=== PATIENT | female | born 1960 | race Caucasian/White ===

== ENCOUNTER 2019-01-03 06:28 | Inpatient (IN) ==
[2019-01-03] MEDS ORDERED: Aspirin 81 MG TAB.CHEW PO ONE (06:33)
[2019-01-03] MEDS ORDERED: Ondansetron 4 MG/2 ML VIAL IVP ONE (07:08)
[2019-01-03] MEDS ORDERED: *HR* FentaNYL (PF) 100 MCG/2 ML VIAL IVP ONE (07:08)
[2019-01-03 07:11] LABS: Basophils # 0.1 K/mcL (0.0-0.2); Basophils % 0.5 %; Eosinophils # 0.1 K/mcL (0.0-0.6); Eosinophils % 0.6 %; Hematocrit 45.4 % (35.3-44.9); Immature Granulocytes % 0.5 % (0-4); Lymphocytes # 2.7 K/mcL (0.6-4.6); Lymphocytes % 21.3 %; Mean Corpuscular Hemoglobin 29.5 pg (28.0-33.3); Mean Corpuscular Volume 89.4 fL (83.0-100.0); Mean Platelet Volume 10.2 fL (9.4-12.4); Monocytes # 0.7 K/mcL (0.0-1.3); Monocytes % 5.6 %; Neutrophils # 9.1 K/mcL (1.6-8.9); Platelet Count 171 K/mcL (140-400); Red Blood Count 5.08 M/mcL (3.82-4.97); Red Cell Distribution Width 13.7 % (11.5-14.5); Segmented Neutrophils % 71.5 %; White Blood Count 12.8 K/mcL (4.3-11.1)
[2019-01-03 07:21] LABS: Activated Partial Thrombo Time 34.9 Seconds (26.0-36.0); Prothrombin Time 11.2 Seconds (9.4-12.1)
--- NOTE | 2019-01-03 07:25 | Emergency Department Note ---
Disposition Clinical Impression: ST elevation myocardial infarction (STEMI) Qualifiers: Involved coronary artery: unspecified coronary artery Qualified Code(s): I21.3 - ST elevation (STEMI) myocardial infarction of unspecified site Disposition: Admitted As Inpatient Condition: Critical Referrals: Coleen Fitzgerald MD [Primary Care Provider] - Forms: ED Satisfaction Letter Time of Disposition: 09:01 Chest Pain HPI - General Chief Complaint: ED Chest Pain Stated Complaint: CP Time Seen by Provider: 01/03/19 06:33 Source: patient, family Mode of arrival: ambulatory Limitations: no limitations Vital Signs Reviewed: Yes Nursing Notes Reviewed: Yes - History of Present Illness HPI Narrative: Nontoxic-appearing 58-year-old female arrives ambulatory to the ED with complaining of chest pain. Patient states that pain is on her right sided lower chest radiating to right arm and back. Pain started last night and worsened around 3 AM. Associated symptoms include nausea and vomiting she states she has vomited multiple times. She describes some right upper quadrant tenderness and bilious with some food content, [employer] pizza, that she ate earlier in the evening. Patient describes pain as sharp,constant pain with intermittent waves of increased pain. Patient states current level of pain is 8-9 out of 10. Patient denies worsening factors. And patient denies improving factors, Aleve was taken around 3:30 AM with no improvement. Patient denies shortness of b reath, pain with inspiration, cough or palpitations. Patient states that she has noticed a gradual intolerance to fried greasy foods when inquired. She denies any hemoptysis. Pt complaint: chest pain Onset (ago): hour(s) Time: 03:00 Duration: constant, intermittent, gradually worsening Onset: during rest, during exertion Pain Location: right chest Severity: severe Severity scale (1-10): 8 Quality: sharp, other (Waves of increasing pain) Pain Radiation: back, other (Right arm) Improves with: nothing Associated symptoms: Reports: nausea, vomiting, diaphoresis (Feels "sweaty and hot"). Denies: dyspnea, syncope, palpitations, fever, cough Treatments prior to arrival chest pain: other (Aleve at 3:30.) - Related Data Home Medications Medication Instructions Recorded Confirmed No Known Home Drugs 01/03/19 01/03/19 Allergies Allergy/AdvReac Type Severity Reaction Status Date / Time codeine Allergy See Verified 01/03/19 06:43 Comments levofloxacin [From Levaquin] AdvReac Muscle Pain Verified 01/03/19 06:42 All systems ED: reviewed and negative except as stated. Review of Systems: As Per HPI Constitutional: Denies: fever, chills, weakness, weight change Eyes: Denies: eye pain, eye discharge, vision change ENT ED: Denies: ear pain, throat pain, dental pain, hearing loss, epistaxis, congestion, dysphagia Cardiovascular: Reports: as per HPI, chest pain (Right-sided lower chest pain radiating to right arm and right sided back.). Denies: palpitations, dyspnea on exertion, edema, syncope Respiratory: Denies: cough, dyspnea, wheezes, hemoptysis, stridor Gastrointestinal: Reports: as per HPI, abdominal pain (Right upper quadrant), nausea, vomiting. Denies: diarrhea, constipation, hematemesis, melena, hematochezia Genitourinary: Reports: frequency. Denies: dysuria, hematuria, discharge Musculoskeletal: Reports: back pain (Associated with chest pain). Denies: neck pain, arthralgia, myalgia Integumentary: Denies: rash, abrasion, lesions Neurological: Denies: headache, weakness, numbness, paresthesias, confusion, abnormal gait, vertigo Psychiatric: Denies: anxiety, depression, suicidal thoughts, homicidal thoughts, auditory hallucinations, visual hallucinations Endocrine: Denies: fatigue Hematological/Lymphatic: Denies: easy bleeding, easy bruising Allergic/Immunologic: Denies: facial swelling, urticaria Chest Pain PMH - Past Medical History Medical history: Reports: diabetes, hypertension Psychiatric history: Reports: no psych history - Social History Smoking Status: Former smoker Alcohol use: Reports: rarely Drug use: Reports: none Physical Exam - General Limitations: no limitations General appearance: alert, anxious (Appears uncomfortable.) - Head Head exam: atraumatic, normocephalic, normal inspection - Eye Eye exam: Present: normal appearance, PERRL, EOMI. Absent: conjunctival injection - ENT ENT exam: mucous membranes moist - Neck Neck exam: Present: normal inspection, full ROM, trachea midline - Chest Chest inspection: Present: normal inspection, symmetric chest wall rise - Respiratory Respiratory exam: Present: normal lung sounds bilaterally. Absent: respiratory distress, wheezes, stridor, accessory muscle use, prolonged expiratory phase - Cardiovascular Cardiovascular exam: Present: regular rate, normal rhythm, normal heart sounds - Abdominal Exam Abdominal exam: Present: tenderness, normal bowel sounds, Coley's sign. Absent: distention, guarding, rebound, rigidity, tenderness at McBurney's Point, mass, pulsatile mass Abdominal tenderness: Present: RUQ, moderate - Extremities Exam Extremities exam: Present: normal inspection, full ROM, tenderness (Radiation of pain down right arm.), normal capillary refill. Absent: pedal edema - Back Exam Back exam: Present: normal inspection, full ROM. Absent: CVA tenderness (R), CVA tenderness (L), vertebral tenderness - Neurological Exam Neurological exam: Present: alert, oriented X3, CN II-XII intact. Absent: motor sensory deficit - Psychiatric Psychiatric exam: Present: normal affect, normal mood, anxious (Related to pain) - Skin Skin exam: Present: warm, dry, intact, normal color. Absent: rash Course Course Narrative: 0826: Initial EKG and prior EKG reviewed by Dr. Courtney, cask maker. He states that the EKG is not diagnostic currently but is concerning if symptoms are ongoing. He states that if the patient is significantly hypertensive, that the EKG changes of slight elevation in lead 1, aVL, and ST segment depression in lead 3 could be due to the patient's hypertensive state. The patient was hypertensive at 196/124 on arrival. Systolic blood pressure has improved to 165 systolic after the administration of IV fentanyl. He does recommend repeating a troponin, starting the patient on a heparin drip. She will be given aspirin and nitroglycerin here in the emergency department. Repeat EKG will be performed as soon as the patient returns from ultrasound/CT. 0835: EKG repeated and shows an interval increase in ST segment elevation in lead aVL as well as worsening ST segment depression, as such ST elevation myocardial infarction in evolution. The patient states no improvement in pain as of yet. 0840: I discussed these EKG changes with Dr. Courtney. He agrees with progressing to a STEMI alert. He requested patient be given 180 mg of Brilinta by mouth. The patient and her spouse have been updated on the change of course and future plan. Vital Signs Temperature 97.9 F 01/03/19 06:33 Pulse Rate 90 01/03/19 06:33 Respiratory Rate 23 01/03/19 06:33 Blood Pressure 196/124 01/03/19 06:33 O2 Sat by Pulse Oximetry 96 01/03/19 06:33 Temperature 97.9 F 01/03/19 06:33 Pulse Rate 86 01/03/19 08:46 Respiratory Rate 18 01/03/19 08:46 Blood Pressure 160/91 01/03/19 08:46 O2 Sat by Pulse Oximetry 98 01/03/19 08:46 Oxygen Delivery Oxygen Delivery Nasal Cannula Chest Pain - Differential Diagnosis Likely: unstable angina pectoris, atypical chest pain, st elevation myocardial infraction, chest pain, biliary colic - Medical Records Medical records reviewed: Yes I reviewed the patient's medical records. - Lab Data Lab results reviewed: Yes I reviewed the patient's lab results. Lab results narrative: Lab Results 01/03/19 01/03/19 01/03/19 Range/Units 07:01 07:01 07:01 WBC 12.8 H (4.3-11.1) K/mcL RBC 5.08 H (3.82-4.97) M/mcL Hgb 15.0 (11.5-15.4) g/dL Hct 45.4 H (35.3-44.9) % MCV 89.4 (83.0-100.0) fL MCH 29.5 (28.0-33.3) pg MCHC 33.0 (31.6-35.5) g/dL RDW 13.7 (11.5-14.5) % Plt Count 171 (140-400) K/mcL MPV 10.2 (9.4-12.4) fL Immature Gran % 0.5 (0-4) % Seg Neutrophils % 71.5 % Lymphocytes % 21.3 % Monocytes % 5.6 % Eosinophils % 0.6 % Basophils % 0.5 % Neutrophils # 9.1 H (1.6-8.9) K/mcL Lymphocytes # 2.7 (0.6-4.6) K/mcL Monocytes # 0.7 (0.0-1.3) K/mcL Eosinophils # 0.1 (0.0-0.6) K/mcL Basophils # 0.1 (0.0-0.2) K/mcL PT 11.2 (9.4-12.1) Seconds INR 1.0 APTT 34.9 (26.0-36.0) Seconds Sodium 137 (136-145) mEq/L Potassium 4.2 (3.5-5.1) mEq/L Chloride 103 (98-107) mEq/L Carbon Dioxide 22 L (23-29) mEq/L BUN 19 (6-20) mg/dL Creatinine 0.66 (0.60-1.20) mg/dL Est GFR ( Amer) > 60 (> 60) Est GFR (Non-Af Amer) > 60 (> 60) BUN/Creatinine Ratio 29 H (6-26) Glucose 169 H (70-105) mg/dL Calculated Osmolality 290 (280-300) Calcium 9.3 (8.6-10.3) mg/dL Total Bilirubin 0.5 (0.3-1.0) mg/dL Direct Bilirubin 0.1 (0.0-0.2) mg/dL Indirect Bilirubin 0.4 (0.0-1.2) mg/dL AST 19 (13-39) Units/L ALT 20 (7-52) Units/L Alkaline Phosphatase 69 (34-104) Units/L Troponin I 0.37 H* (< 0.04) ng/mL B-Natriuretic Peptide (Less than 100) pg/mL Serum Total Protein 6.9 (6.4-8.9) g/dL Albumin 4.3 (3.5-5.7) g/dL Globulin 2.6 (2.4-3.5) g/dL Albumin/Globulin Ratio 1.7 (1.1-2.2) Lipase 39 (11-82) Units/L 01/03/19 Range/Units 07:01 WBC (4.3-11.1) K/mcL RBC (3.82-4.97) M/mcL Hgb (11.5-15.4) g/dL Hct (35.3-44.9) % MCV (83.0-100.0) fL MCH (28.0-33.3) pg MCHC (31.6-35.5) g/dL RDW (11.5-14.5) % Plt Count (140-400) K/mcL MPV (9.4-12.4) fL Immature Gran % (0-4) % Seg Neutrophils % % Lymphocytes % % Monocytes % % Eosinophils % % Basophils % % Neutrophils # (1.6-8.9) K/mcL Lymphocytes # (0.6-4.6) K/mcL Monocytes # (0.0-1.3) K/mcL Eosinophils # (0.0-0.6) K/mcL Basophils # (0.0-0.2) K/mcL PT (9.4-12.1) Seconds INR APTT (26.0-36.0) Seconds Sodium (136-145) mEq/L Potassium (3.5-5.1) mEq/L Chloride (98-107) mEq/L Carbon Dioxide (23-29) mEq/L BUN (6-20) mg/dL Creatinine (0.60-1.20) mg/dL Est GFR ( Amer) (> 60) Est GFR (Non-Af Amer) (> 60) BUN/Creatinine Ratio (6-26) Glucose (70-105) mg/dL Calculated Osmolality (280-300) Calcium (8.6-10.3) mg/dL Total Bilirubin (0.3-1.0) mg/dL Direct Bilirubin (0.0-0.2) mg/dL Indirect Bilirubin (0.0-1.2) mg/dL AST (13-39) Units/L ALT (7-52) Units/L Alkaline Phosphatase (34-104) Units/L Troponin I (< 0.04) ng/mL B-Natriuretic Peptide 47 (Less than 100) pg/mL Serum Total Protein (6.4-8.9) g/dL Albumin (3.5-5.7) g/dL Globulin (2.4-3.5) g/dL Albumin/Globulin Ratio (1.1-2.2) Lipase (11-82) Units/L Result diagrams: 01/03/19 07:01 01/03/19 07:01 Lab Results 01/03/19 01/03/19 01/03/19 Range/Units 07:01 07:01 07:01 WBC 12.8 H (4.3-11.1) K/mcL RBC 5.08 H (3.82-4.97) M/mcL Hgb 15.0 (11.5-15.4) g/dL Hct 45.4 H (35.3-44.9) % MCV 89.4 (83.0-100.0) fL MCH 29.5 (28.0-33.3) pg MCHC 33.0 (31.6-35.5) g/dL RDW 13.7 (11.5-14.5) % Plt Count 171 (140-400) K/mcL MPV 10.2 (9.4-12.4) fL Immature Gran % 0.5 (0-4) % Seg Neutrophils % 71.5 % Lymphocytes % 21.3 % Monocytes % 5.6 % Eosinophils % 0.6 % Basophils % 0.5 % Neutrophils # 9.1 H (1.6-8.9) K/mcL Lymphocytes # 2.7 (0.6-4.6) K/mcL Monocytes # 0.7 (0.0-1.3) K/mcL Eosinophils # 0.1 (0.0-0.6) K/mcL Basophils # 0.1 (0.0-0.2) K/mcL PT 11.2 (9.4-12.1) Seconds INR 1.0 APTT 34.9 (26.0-36.0) Seconds Sodium 137 (136-145) mEq/L Potassium 4.2 (3.5-5.1) mEq/L Chloride 103 (98-107) mEq/L Carbon Dioxide 22 L (23-29) mEq/L BUN 19 (6-20) mg/dL Creatinine 0.66 (0.60-1.20) mg/dL Est GFR ( Amer) > 60 (> 60) Est GFR (Non-Af Amer) > 60 (> 60) BUN/Creatinine Ratio 29 H (6-26) Glucose 169 H (70-105) mg/dL Calculated Osmolality 290 (280-300) Calcium 9.3 (8.6-10.3) mg/dL Total Bilirubin 0.5 (0.3-1.0) mg/dL Direct Bilirubin 0.1 (0.0-0.2) mg/dL Indirect Bilirubin 0.4 (0.0-1.2) mg/dL AST 19 (13-39) Units/L ALT 20 (7-52) Units/L Alkaline Phosphatase 69 (34-104) Units/L Troponin I 0.37 H* (< 0.04) ng/mL B-Natriuretic Peptide (Less than 100) pg/mL Serum Total Protein 6.9 (6.4-8.9) g/dL Albumin 4.3 (3.5-5.7) g/dL Globulin 2.6 (2.4-3.5) g/dL Albumin/Globulin Ratio 1.7 (1.1-2.2) Lipase 39 (11-82) Units/L / Range/Units 07:01 WBC (4.3-11.1) K/mcL RBC (3.82-4.97) M/mcL Hgb (11.5-15.4) g/dL Hct (35.3-44.9) % MCV (83.0-100.0) fL MCH (28.0-33.3) pg MCHC (31.6-35.5) g/dL RDW (11.5-14.5) % Plt Count (140-400) K/mcL MPV (9.4-12.4) fL Immature Gran % (0-4) % Seg Neutrophils % % Lymphocytes % % Monocytes % % Eosinophils % % Basophils % % Neutrophils # (1.6-8.9) K/mcL Lymphocytes # (0.6-4.6) K/mcL Monocytes # (0.0-1.3) K/mcL Eosinophils # (0.0-0.6) K/mcL Basophils # (0.0-0.2) K/mcL PT (9.4-12.1) Seconds INR APTT (26.0-36.0) Seconds Sodium (136-145) mEq/L Potassium (3.5-5.1) mEq/L Chloride (98-107) mEq/L Carbon Dioxide (23-29) mEq/L BUN (6-20) mg/dL Creatinine (0.60-1.20) mg/dL Est GFR ( Amer) (> 60) Est GFR (Non-Af Amer) (> 60) BUN/Creatinine Ratio (6-26) Glucose (70-105) mg/dL Calculated Osmolality (280-300) Calcium (8.6-10.3) mg/dL Total Bilirubin (0.3-1.0) mg/dL Direct Bilirubin (0.0-0.2) mg/dL Indirect Bilirubin (0.0-1.2) mg/dL AST (13-39) Units/L ALT (7-52) Units/L Alkaline Phosphatase (34-104) Units/L Troponin I (< 0.04) ng/mL B-Natriuretic Peptide 47 (Less than 100) pg/mL Serum Total Protein (6.4-8.9) g/dL Albumin (3.5-5.7) g/dL Globulin (2.4-3.5) g/dL Albumin/Globulin Ratio (1.1-2.2) Lipase (11-82) Units/L - Radiology Data Radiology results reviewed: Yes I reviewed the patient's radiology results. Chest X-Ray 01/03/19 06:33 IMPRESSION: No acute cardiopulmonary disease or significant interval change from prior study 04/29/2013 D/ / Vu Ibarra / Vu Ibarra Interpreting Provider: Vu Ibarra Gallbladder Ultrasound 01/03/19 07:15 IMPRESSION: Moderate fatty infiltration of the liver. No acute abnormality. No evident gallbladder disease. RECOMMENDATIONS: If a strong clinical suspicion of gallbladder disease exists, a hepatobiliary scan with gallbladder stimulation would be recommended. D/ / Lam Fraser MD / Lam Fraser MD Interpreting Provider: Lam Fraser MD Chest CTA 01/03/19 07:42 IMPRESSION: No evidence of pulmonary embolism or acute pulmonary abnormality. Slight bibasilar atelectasis. Old granulomatous disease. D/ / Lam Fraser MD / Lam Fraser MD Interpreting Provider: Lam Fraser MD - EKG Data EKG attestation: Yes I reviewed and interpreted this EKG. EKG results narrative: EKG reviewed by scene shifter ED attending at 6:40 AM. EKG showed a sinus rhythm at a rate of 82 bpm. OK interval 122, QRS duration 82, QT/QTc interval 372/435. EKG interpreted at that time as no acute change. Patient's troponin returned elevated at 0.37 and the EKG was revisited with dayshift attending, Dr. Rollins. Upon closer inspection, there does appear to be some slight ST segment elevation in lead 1 as well as aVL with some ST segment depression in lead 3. Poor tracing on prior EKG dated from 06/17/[address] segment depression does appear to be new from that time. Attestation Statement - Attestation Attestation: I, Nestor Rollins DO have provided [id number] time during the care of this patient. Detailed review the presentation, symptoms, medical history were discussed and reviewed with the advanced practice provider Haroon Suresh PA-C/KYLE. Medical intervention labs and imaging studies were reviewed in detail. See full documentation of physical exam and course of care in the advanced practice provi katina's note. I agree with the determined course of care, medical intervention and disposition put forth by the advanced practice provider. See below documentation for changes or alterations in documentation.
[2019-01-03 07:40] LABS: Alanine Aminotransferase 20 Units/L (7-52); Albumin 4.3 g/dL (3.5-5.7); Albumin/Globulin Ratio 1.7 (1.1-2.2); Alkaline Phosphatase 69 Units/L (34-104); Aspartate Amino Transferase 19 Units/L (13-39); BUN/Creatinine Ratio 29 (6-26); Bilirubin,Direct 0.1 mg/dL (0.0-0.2); Bilirubin,Indirect 0.4 mg/dL (0.0-1.2); Bilirubin,Total 0.5 mg/dL (0.3-1.0); Blood Urea Nitrogen 19 mg/dL (6-20); Calcium 9.3 mg/dL (8.6-10.3); Carbon Dioxide 22 mEq/L (23-29); Chloride 103 mEq/L (98-107); Globulin 2.6 g/dL (2.4-3.5); Glucose 169 mg/dL (70-105); Lipase 39 Units/L (11-82); Osmolality,Calculated 290 (280-300); Potassium 4.2 mEq/L (3.5-5.1); Sodium 137 mEq/L (136-145); Total Protein 6.9 g/dL (6.4-8.9); Troponin I 0.37 ng/mL (< 0.04); eGFR For African Americans > 60 (> 60); eGFR For Non-African Americans > 60 (> 60)
[2019-01-03] MEDS ORDERED: Isovue-370 500 ML BOTTLE IVP ONE (07:42)
--- NOTE | 2019-01-03 08:16 | Emergency Department Note ---
Disposition Clinical Impression: ST elevation myocardial infarction (STEMI) Qualifiers: Involved coronary artery: unspecified coronary artery Qualified Code(s): I21.3 - ST elevation (STEMI) myocardial infarction of unspecified site Disposition: Admitted As Inpatient Condition: Fair Referrals: Coleen Fitzgerald MD [Primary Care Provider] - Forms: ED Satisfaction Letter Time of Disposition: 09:03 General Adult HPI - General Chief complaint: ED Chest Pain Stated complaint: CP Time Seen by Provider: 01/03/19 06:33 Source: patient, family Mode of arrival: ambulatory Limitations: no limitations - History of Present Illness Pain Scale: 8 - Related Data Home Medications Medication Instructions Recorded Confirmed No Known Home Drugs 01/03/19 01/03/19 Allergies Allergy/AdvReac Type Severity Reaction Status Date / Time codeine Allergy See Verified 01/03/19 06:43 Comments levofloxacin [From Levaquin] AdvReac Muscle Pain Verified 01/03/19 06:42 Constitutional: Denies: fever, chills, weakness, weight change Eyes: Denies: eye pain, eye discharge, vision change ENT ED: Denies: ear pain, throat pain, dental pain, hearing loss, epistaxis, congestion, dysphagia Cardiovascular: Reports: as per HPI, chest pain (Right-sided lower chest pain radiating to right arm and right sided back.). Denies: palpitations, dyspnea on exertion, edema, syncope Respiratory: Denies: cough, dyspnea, wheezes, hemoptysis, stridor Gastrointestinal: Reports: as per HPI, abdominal pain (Right upper quadrant), nausea, vomiting. Denies: diarrhea, constipation, hematemesis, melena, hematochezia Genitourinary: Reports: frequency. Denies: dysuria, hematuria, discharge Musculoskeletal: Reports: back pain (Associated with chest pain). Denies: neck pain, arthralgia, myalgia Integumentary: Denies: rash, abrasion, lesions Neurological: Denies: headache, weakness, numbness, paresthesias, confusion, abnormal gait, vertigo Psychiatric: Denies: anxiety, depression, suicidal thoughts, homicidal thoughts, auditory hallucinations, visual hallucinations Endocrine: Denies: fatigue Hematological/Lymphatic: Denies: easy bleeding, easy bruising Allergic/Immunologic: Denies: facial swelling, urticaria Past Medical History - Past Medical History Medical history: Reports: diabetes, hypertension Psychiatric history: Reports: no psych history - Social History Smoking Status: Former smoker Smokeless Tobacco Status: No Alcohol use: Reports: rarely Drug use: Reports: none Physical Exam - General Limitations: no limitations General appearance: alert, anxious (Appears uncomfortable.) Course Vital Signs Temperature 97.9 F 01/03/19 06:33 Pulse Rate 90 01/03/19 06:33 Respiratory Rate 23 01/03/19 06:33 Blood Pressure 196/124 01/03/19 06:33 O2 Sat by Pulse Oximetry 96 01/03/19 06:33 Temperature 97.9 F 01/03/19 06:33 Pulse Rate 97 01/03/19 06:51 Respiratory Rate 25 01/03/19 06:51 Blood Pressure 165/11 01/03/19 06:59 O2 Sat by Pulse Oximetry 97 01/03/19 06:51 Oxygen Delivery Oxygen Delivery Room Air Medical Decision Making - Lab Data Result diagrams: 01/03/19 07:01 01/03/19 07:01 Lab Results 01/03/19 01/03/19 01/03/19 Range/Units 07:01 07:01 07:01 WBC 12.8 H (4.3-11.1) K/mcL RBC 5.08 H (3.82-4.97) M/mcL Hgb 15.0 (11.5-15.4) g/dL Hct 45.4 H (35.3-44.9) % MCV 89.4 (83.0-100.0) fL MCH 29.5 (28.0-33.3) pg MCHC 33.0 (31.6-35.5) g/dL RDW 13.7 (11.5-14.5) % Plt Count 171 (140-400) K/mcL MPV 10.2 (9.4-12.4) fL Immature Gran % 0.5 (0-4) % Seg Neutrophils % 71.5 % Lymphocytes % 21.3 % Monocytes % 5.6 % Eosinophils % 0.6 % Basophils % 0.5 % Neutrophils # 9.1 H (1.6-8.9) K/mcL Lymphocytes # 2.7 (0.6-4.6) K/mcL Monocytes # 0.7 (0.0-1.3) K/mcL Eosinophils # 0.1 (0.0-0.6) K/mcL Basophils # 0.1 (0.0-0.2) K/mcL PT 11.2 (9.4-12.1) Seconds INR 1.0 APTT 34.9 (26.0-36.0) Seconds Sodium 137 (136-145) mEq/L Potassium 4.2 (3.5-5.1) mEq/L Chloride 103 (98-107) mEq/L Carbon Dioxide 22 L (23-29) mEq/L BUN 19 (6-20) mg/dL Creatinine 0.66 (0.60-1.20) mg/dL Est GFR ( Amer) > 60 (> 60) Est GFR (Non-Af Amer) > 60 (> 60) BUN/Creatinine Ratio 29 H (6-26) Glucose 169 H (70-105) mg/dL Calculated Osmolality 290 (280-300) Calcium 9.3 (8.6-10.3) mg/dL Total Bilirubin 0.5 (0.3-1.0) mg/dL Direct Bilirubin 0.1 (0.0-0.2) mg/dL Indirect Bilirubin 0.4 (0.0-1.2) mg/dL AST 19 (13-39) Units/L ALT 20 (7-52) Units/L Alkaline Phosphatase 69 (34-104) Units/L Troponin I 0.37 H* (< 0.04) ng/mL B-Natriuretic Peptide (Less than 100) pg/mL Serum Total Protein 6.9 (6.4-8.9) g/dL Albumin 4.3 (3.5-5.7) g/dL Globulin 2.6 (2.4-3.5) g/dL Albumin/Globulin Ratio 1.7 (1.1-2.2) Lipase 39 (11-82) Units/L 01/03/19 Range/Units 07:01 WBC (4.3-11.1) K/mcL RBC (3.82-4.97) M/mcL Hgb (11.5-15.4) g/dL Hct (35.3-44.9) % MCV (83.0-100.0) fL MCH (28.0-33.3) pg MCHC (31.6-35.5) g/dL RDW (11.5-14.5) % Plt Count (140-400) K/mcL MPV (9.4-12.4) fL Immature Gran % (0-4) % Seg Neutrophils % % Lymphocytes % % Monocytes % % Eosinophils % % Basophils % % Neutrophils # (1.6-8.9) K/mcL Lymphocytes # (0.6-4.6) K/mcL Monocytes # (0.0-1.3) K/mcL Eosinophils # (0.0-0.6) K/mcL Basophils # (0.0-0.2) K/mcL PT (9.4-12.1) Seconds INR APTT (26.0-36.0) Seconds Sodium (136-145) mEq/L Potassium (3.5-5.1) mEq/L Chloride (98-107) mEq/L Carbon Dioxide (23-29) mEq/L BUN (6-20) mg/dL Creatinine (0.60-1.20) mg/dL Est GFR ( Amer) (> 60) Est GFR (Non-Af Amer) (> 60) BUN/Creatinine Ratio (6-26) Glucose (70-105) mg/dL Calculated Osmolality (280-300) Calcium (8.6-10.3) mg/dL Total Bilirubin (0.3-1.0) mg/dL Direct Bilirubin (0.0-0.2) mg/dL Indirect Bilirubin (0.0-1.2) mg/dL AST (13-39) Units/L ALT (7-52) Units/L Alkaline Phosphatase (34-104) Units/L Troponin I (< 0.04) ng/mL B-Natriuretic Peptide 47 (Less than 100) pg/mL Serum Total Protein (6.4-8.9) g/dL Albumin (3.5-5.7) g/dL Globulin (2.4-3.5) g/dL Albumin/Globulin Ratio (1.1-2.2) Lipase (11-82) Units/L Critical Care Time Critical Care Time: Yes Total Critical Care Time: 45 Attestation: Critical care performed: Time is exclusive of separately billable procedures. Time includes: direct patient care, patient reassessment, coordination of patient care, interpretation of data (laboratory data, radiology data, and respiratory data), review of patient's medical records, medical consultation and documentation of patient care. Procedures included in critical care time: Procedures excluded from critical care time: Attestation Statement - Attestation Attestation: I, Nestor Rollins DO have provided [id number] time [facility] Detailed review the presentation, symptoms, medical history were discussed and reviewed with the advanced practice provider Haroon Suresh PA-C/KYLE. Medical intervention labs and imaging studies were reviewed in detail. See full documentation of physical exam and course of care in the advanced practice provider's note. I agree with the determined course of care, medical intervention and disposition put forth by the advanced practice provider. See below documentation for changes or alterations in documentation. 58-year-old female presents emergency room with atypical abdominal discomfort and pain that starts in the right upper quadrant of the abdomen and radiates the chest. She denies any falls trauma or injury. Denies any history of coronary artery disease. She said intermittent chest discomfort but no described chest pain. She has not had any specific nausea vomiting or diarrhea. All the symptoms started this morning at 3 AM. She otherwise has been healthy and feeling well for the days prior. Vital signs are reviewed and are stable on presentation. Initial evaluation was established with EKG CBC chemistry chest x-ray troponin and BNP and right upper quadrant ultrasound along with liver function testing and lipase. The labs came back with the patient was over ge tting ultrasound completed and she had an elevated troponin of 0.7. Aspirin was ordered at that time an EKG was reviewed by myself. Initial EKG was collected at 0640 hours this morning and reviewed by the overnight physician. On my review there was some concern for slight elevation in lead 1 and aVL with reciprocal depression in lead 3. The on-call student services rep was contacted secondary to the EKG changes as well as a concern for possible anginal equivalent with the right upper quadrant chest pain. Patient is in CAT scan currently at this time. The student services rep Dr. espinosa review the ECG and recommended heparin drip and repeat troponin EKG. Dependent upon these findings the patient will either the [facility] will be admitted. Patient is otherwise clinically stable. Physical exam is unremarkable. Lungs are clear heart is regular abdomen is soft. No pulsatile masses or lesions. Disposition will be admitted for symptomatic control management. Proximal 45 minutes of critical care will be applied the patient's treatment course secondary to multidisciplinary intervention and medical management. See detailed documentation of the physical exam, medical intervention, medical decision- making disposition the advanced practice provider's note. 0840 Repeat EKG completed as the patient returned from the angiography of the chest is diagnostic of this time for ST segment elevations in leads 1 aVL and increasing depressions in lead 3. The on-call color paste mixer agreed for acute myocardial infarction alert to be called at this point. Patient will have a ppropriate anticoagulation provided and she will go to the [facility] at this time. No other acute issues at this time. Patient is otherwise stable. Nitroglycerin did help with the discomfort with moderate resolution of the hypertension. Patient will require admission after the catheterization is completed. This appears to be a slow resolution of myocardial ischemia this started approximately 3 AM this morning with nondiagnostic initial ECG and the progression in the diagnostic ECG possibly two hour after arrival. Patient is otherwise clinically stable be going to the [facility] at this time. Patient will be monitored here in the emergency department until the admission process is completed
[2019-01-03] MEDS ORDERED: *HR* Heparin 5,000 UNIT/ML VIAL IVP PRN ×2 (08:29)
[2019-01-03] MEDS ORDERED: *HR* Heparin 5,000 UNIT/ML VIAL IVP ONE (08:29)
[2019-01-03] MEDS ORDERED: Heparin 25,000 UNIT/250 ML D5W 25,000 UNIT/250 ML IV.SOLN IVC SCH (08:30)
[2019-01-03] MEDS: Nitroglycerin 0.4 MG TAB.SUBL SL PRN ×2 (08:35→09:08)
[2019-01-03] MEDS ORDERED: *HR* Ticagrelor 90 MG TABLET PO ONE (08:43)
[2019-01-03] MEDS ORDERED: Heparin 25,000 UNIT/250 ML D5W 25,000 UNIT/250 ML IV.SOLN IVC ONE (08:52)
[2019-01-03 09:00] LABS: Hematocrit 46.2 % (35.3-44.9); Hemoglobin 15.3 g/dL (11.5-15.4); Mean Corpuscular HGB Conc 33.1 g/dL (31.6-35.5); Mean Corpuscular Hemoglobin 29.7 pg (28.0-33.3); Mean Corpuscular Volume 89.7 fL (83.0-100.0); Mean Platelet Volume 9.8 fL (9.4-12.4); Platelet Count 312 K/mcL (140-400); Red Blood Count 5.15 M/mcL (3.82-4.97); Red Cell Distribution Width 13.7 % (11.5-14.5); White Blood Count 12.7 K/mcL (4.3-11.1)
[2019-01-03] MEDS ORDERED: 0.9 % Sodium Chloride 1,000 ML ONE ×2 (09:00→09:21)
[2019-01-03 09:02] LABS: Bilirubin,Urine Negative (Negative); Blood,Urine Trace-intact (Negative); Clarity,Urine Clear (Clear); Color,Urine Yellow (Yellow); Glucose,Urine (UA) 100 mg/dL (Normal); Ketones,Urine Negative (Negative); Leukocyte Esterase,Urine Small (Negative); Nitrite,Urine Negative (Negative); Protein,Urine 30 mg/dL (Neg-Trace); Specific Gravity,Urine 1.015 (1.010-1.025); Urobilinogen,Urine Normal (Normal)
[2019-01-03 09:07] LABS: Bacteria,Urine None Seen per hpf (None-Few); Hyaline Casts,Urine None Seen per lpf (None-Few); Squamous Epithelial Cell,Urine Many per lpf (None-Few); WBC,Urine 30-50 per hpf (0-3)
[2019-01-03 09:09] LABS: Heparin anti-factor XA UFH 0.02 IU/mL (0.30-0.70)
[2019-01-03 09:10] LABS: Prothrombin Time 11.2 Seconds (9.4-12.1)
[2019-01-03] MEDS ORDERED: Heparin 1,000 UNITS/500 mL 500 ML ONE (09:22)
[2019-01-03] MEDS ORDERED: Nitroglycerin 1,000 MCG/10 ML VIAL IV ONE (09:22)
[2019-01-03] MEDS ORDERED: *HR* Heparin 10,000 UNIT/10 ML VIAL ONE (09:22)
[2019-01-03] MEDS ORDERED: ISOVUE-370 200 ML INFUS..BTL ONE ×2 (09:22→09:34)
[2019-01-03] MEDS ORDERED: Verapamil 5 MG/2 ML VIAL ONE (09:25)
[2019-01-03] MEDS ORDERED: *HR* Midazolam HCl 2 MG/2 ML VIAL ONE ×2 (09:28→09:34)
[2019-01-03] MEDS ORDERED: Tirofiban 12.5 MG/250ML 12.5 MG/250 ML BAG ONE (09:28)
[2019-01-03] MEDS ORDERED: *HR* FentaNYL (PF) 100 MCG/2 ML VIAL ONE (09:28)
[2019-01-03] MEDS ORDERED: *HR* HYDROcodone/Acet 5/325 mg TABLET PO PRN (10:15)
[2019-01-03] MEDS ORDERED: Acetaminophen 325 MG TABLET PO PRN (10:15)
--- NOTE | 2019-01-03 10:15 | Pre-Sedation Evaluation ---
Pre-sedation evaluation - Pre-sedation checklist Date of procedure: 01/03/19 Procedure: [facility] Recent Vitals: Last Vital Signs Temp 97.9 F 01/03/19 06:33 Pulse 87 01/03/19 09:13 Resp 16 01/03/19 09:13 BP 141/92 01/03/19 09:13 Pulse Ox 98 01/03/19 09:13 H&P (including ROS) documented in medical record: Yes Previous reaction to sedatives/anesthetics: No Dietary Status: No solid food in preceding 4 hrs and no liquid in preceding 2 hrs Airway Assessment: Patient can open mouth completely, TMJ function normal If Yes;: Morbid obesity, Enlarged neck circumference, short neck ASA Classification *see protocol: CLASS V-Morbid complications, operation only hope of survival, [id number] to any of the above to indicate emergent Plan of Care: Pt appropriate candidate for procedure/moderate/conscious sedation, Risks/benefits of procedure/sedation discussed w/ patient/family, If not NPO; Risk of intake outweiged by necessity to perform procedure Cardiac Registry (Cardio Only) - Functional Capacity Functional Capacity: Unknown - Clincal Frailty Scale Clinical Frailty Scale: Vulnerable
[2019-01-03] MEDS ORDERED: *HR* Dextrose 50 % in Water (Syg) 50 ML SYRINGE IVP PRN (10:20)
[2019-01-03] MEDS ORDERED: D5% in Water 1,000 ML IVC PRN (10:20)
[2019-01-03] MEDS ORDERED: Dextrose Gel 15 GM/37.5 ML TUBE PO PRN ×2 (10:20)
--- NOTE | 2019-01-03 10:28 | Invasive Diagnostic Lab Proc ---
Name: Jenelle Plata Date of Study: 01/03/2019 Date: 1960 Ht: 63.0in Medical Record#: [id number] Age: 58 Wt: 220.46lb Gender: Female BSA: 2.02 Order #: [id number] BMI: 39.06 Physicians Procedure Physician: Mohan Courtney MD, FACC Referring MD: Referring MD: Staff Name Position Time In William Adair RN Fastener Technologist 09:22 AM Minda Tabares RT (R) Scrub 09:22 AM Marti Coronel RT (R) Monitor 09:22 AM Sandi Colon RN Nurse 09:30 AM Indications Indication STEMI Procedures Performed Procedure L HRT ARTERY/VENTRICLE ANGIO PRQ CARD REVASC VT 1 VSL PRQ CARDIAC ANGIOPLAST 1 ART Pre-Procedure Checklist Informed consent is complete signed and on chart. H&P is on chart. ID band is on and ID verified with patient. Patient NPO for procedure The procedure was described for the patient and questions were answered. Blood Pressure: 151/97 ECG is on chart. Rhythm: NSR Plan of Care Patient will tolerate the procedure without complications. Adequate level of comfort will be maintained. Hemodynamics will remain stable Patient will recover from procedure without complications. Respiratory function will be maintained. Cardiac rhythm will remain stable. Patient temperature will be maintained. Patient and/or family have verbalized understanding of the procedure. Patient Education Chief Complaint/Reason for Test: Cardiac Cath Developmental Category: Adult (18-64 years) Developmentally Appropriate for Age: Yes Learning Barriers: None Education Needs: Procedure Education Method: Verbal Information Taught: Cardiac Cath Educational Evaluation: Able to repeat information Intravenous Access Time IV Size Location DC'd Fluid/Drip Rate Units RN 09:28 AM 18g 1 1/4" Patent On Arrival Rt Antecubital 0.9NaCl 25 ml/hr 09:28 AM 20g 1 1/4" Patent On Arrival Lt Antecubital Allergies levofloxacin codeine Vital Signs Time BP (mmHg) HR (bpm) O2 Sat. RR (bpm) LOC 09:32 AM / % 4 = Oriented but drowsy 09:32 AM / % 4 = Oriented but drowsy 09:47 AM / % 4 = Oriented but drowsy 09:29 AM 151 / 97 76 98 % 37 09:33 AM 154 / 99 91 90 % 17 09:39 AM 126 / 83 86 97 % 17 09:43 AM 139 / 80 81 97 % 16 09:48 AM 134 / 74 84 97 % 16 09:53 AM 134 / 80 76 97 % 16 09:58 AM 126 / 87 86 95 % 15 10:03 AM 123 / 77 75 97 % 17 10:08 AM 116 / 89 79 % 19 Procedural Medications Time Medication Dose Units Method Given By 09:29 AM Versed 2 mg Intravenous William Adair RN 09:29 AM Fentanyl 25 mcg Intravenous William Adair RN 09:30 AM Oxygen 2 L/min nasal cannula William Adair RN 09:32 AM Lidocaine 2% 0.5 ml Subcutaneous Mohan Courtney MD, FACC 09:34 AM Heparin 1000 units Nitroglycerin 200 mcg Verapamil 2.5 mg Intraarterial Mohan Courtney MD, FACC 09:47 AM Aggrastat Bolus: 50 ml Intravenous William Adair RN 09:47 AM Aggrastat 12.5mg/250ml 18 ml Intravenous William Adair RN 09:48 AM Nitroglycerin 200 mcg Intracoronary Mohan Courtney MD Mariia Score Preprocedure Postprocedure Activity 2- Moves 4 extremities sustained head lift Activity 2- Moves 4 extremities sustained head lift Circulation 2- SBP +/= 20 points of pre-anesthetic level Circulation 2- SBP +/= 20 points of pre-anesthetic level Consciousness 2- Awake and alert oriented x 3 Consciousness 2- Awake and alert oriented x 3 O2 Saturation 2- Able to maintain O2 satruation of 92% on room air O2 Saturation 2- Able to maintain O2 satruation of 92% on room air Respiratory 2- Able to deep breathe and cough well Respiratory 2- Able to deep breathe and cough well Total Score 10 Total Score 10 Contrast Agent: Isovue Diagnostic Contrast: 188 ml Total Contrast: 188 ml Fluoro Dose: 13 mGy Activated Clotting Time Time Seconds to Clot 09:58 AM 400 Procedure Log Time Note Enter By 09:22 AM CathStat 09:22 AM Pt arrived to laboratory clerk 2 at 09:22 09:22 AM William Adair RN Position: Fastener Technologist Time in: 09:22 09:22 AM Minda Tabares RT (R) Position: Scrub Time in: 09:22 [facility] 09:22 AM Patient charges- Angio tray pack, Navilyst 3mm J, Pulse Oximetry and ACIST tubing and transducer 09:22 AM Marti Coronel RT (R) Position: Monitor Time in: : 09:22 AM IV Supplies used: J loop Angio Cath. 09:22 AM Meet and greet completed 09:22 AM Physician arrived 09:[facility] 09:22 AM Sign in performed according to hospital policy. Informed consent was obtained. 09:23 AM Procedure start : 09:27 AM Vitals capture started with the following parameters, Patient=Adult, Interval=5 min, Initial Ktsbwrhe=000 mmHg, Deflation Rate=3 mmHg, Cuff placed on Right Arm 09:29 AM HR=76 bpm, KHVA=293/97 mmhg, SpO2=98.0 %, Resp=37 B/min 09:29 AM Time: 09:29 Versed 2 mg Intravenous Given by William Adair RN [facility] 09:29 AM Time: 09:29 Fentanyl 25 mcg Intravenous Given by William Adair RN [facility] 09:30 AM Time: 09:30 Oxygen on at 2 L/min per nasal cannula by William Adair RN [facility] 09:30 AM Sandi Colon RN Position: Nurse Time in: 09:30 09:30 AM Hair removed from procedure site in procedure lab using clippers. Right wrist and Right groin prepped with Chloraprep by Sandi Colon RN, then patient was draped. Skin intact. 09:31 AM Recorded ECG: HR=91 Condition=Condition 1 09:31 AM Reference ECG taken 09:31 AM Pressure channel 1 zero failed. 09:31 AM Pressure channel 1 zero failed. 09:31 AM Pressure channel 1 zero failed. 09:31 AM Pressure channel 1 zero failed. 09:32 AM Time: 09:32 Patient comfortable and pain free: Yes [email or web address] 09:32 AM Time: 09:32LOC: 4 = Oriented but drowsy [email or web address] 09:32 AM Time out was performed according to hospital policy. Conscious sedation and anesthesia was achieved (see medication log with in this report above) [email or web address] 09:32 AM Time: 09:32 0.5 ml Lidocaine 2% to right radial Subcutaneous Given by Mohan Courtney MD, [facility] [email or web address] 09:33 AM Pressure channel 1 zeroed. 09:33 AM Access obtained by percutaneous puncture. 6Fr 10cm Terumo Glidesheath sheath placed in right Radial artery. [id number] [email or web address] 09:33 AM HR=91 bpm, DBMT=153/99 mmhg, SpO2=90.0 %, Resp=17 B/min 09:34 AM Time: 09:34 Patient given 1,000 units Heparin, 200 mcg Nitroglycerin, and 2.5 mg Verapamil Intraarterial by Mohan Courtney MD, [facility]. This is given to reduce risk of vessel spasm and thrombosis. [email or web address] 09:34 AM 6Fr CLS 3.5 Runway guide catheter was used to cannulate the PCI vessel successfully. reused? No [email or web address] 09:35 AM 0.035 145cm Navilyst 3mmJ wire [id number] [email or web address] 09:35 AM Inflation device was opened. [email or web address] 09:36 AM LCA angiography performed in multiple views. [email or web address] 09:37 AM Recorded Pressure: Ao, HR=88, Condition=Condition 1 (Aorta) Ao 120/82/99 09:37 AM Lesion found in 1st Marginal. Pre Stenosis: 100 Pre GAGE Flow: 3: Complete and Brisk Flow/Perfusion [email or web address] 09:38 AM .014 PT Graphix 182cm guide wire across target lesion- successful. reused? No [email or web address] 09:38 AM 2.25 mm x 15 mm Emerge Monorail balloon across target lesion- successful. reused? No [email or web address] 09:39 AM HR=86 bpm, YTMG=544/83 mmhg, SpO2=97.0 %, Resp=17 B/min, Comment=NSR 09:39 AM .014 PT Graphix 182cm guide wire across target lesion- successful. reused? No [email or web address] 09:40 AM Guide wire removed intact. [email or web address] 09:42 AM Balloon inflated @ 1 allyson for 15 seconds [email or web address] 09:42 AM Lesion found in Mid LAD. Pre Stenosis: 80 Pre GAGE Flow: 3: Complete and Brisk Flow/Perfusion [email or web address] 09:43 AM Balloon inflated @ 12 allyson for 8 seconds [email or web address] 09:43 AM HR=81 bpm, GNAK=944/80 mmhg, SpO2=97.0 %, Resp=16 B/min, Comment=NSR 09:43 AM Balloon catheter removed intact. [email or web address] 09:44 AM 2.5mm x 16mm Synergy drug-eluting stent across target lesion- successful Lot [id number] [email or web address] 09:46 AM Stent deployed @ 12 allyson for 18 seconds [email or web address] 09:47 AM Time: 09:47 Aggrastat Bolus: 50 ml Intravenous Given by William Adair RN Valencia pump [email or web address] 09:47 AM Time: 09:32 Patient comfortable and pain free: Yes [email or web address] 09:47 AM Time: 09:32LOC: 4 = Oriented but drowsy [email or web address] 09:47 AM Time: 09:47 Aggrastat 12.5mg/250ml 18 ml Intravenous Given by William Adair RN Valencia pump [email or web address] 09:48 AM Time: 09:48 Nitroglycerin 200 mcg Intracoronary Given by Mohan Courtney MD [email or web address] 09:48 AM HR=84 bpm, MTNL=465/74 mmhg, SpO2=97.0 %, Resp=16 B/min, Comment=NSR 09:49 AM Stent balloon reinflated @ 12 allyson for 16 seconds [email or web address] 09:50 AM Stent delivery system removed intact. [email or web address] 09:50 AM Wire placed in circumflex. [email or web address] 09:51 AM 2.25 balloon re-inserted into circumflex. [email or web address] 09:52 AM Lesion found in Proximal Circumflex. Pre Stenosis: 90 Pre GAGE Flow: 3: Complete and Brisk Flow/Perfusion [email or web address] 09:52 AM Balloon catheter removed intact. [email or web address] 09:52 AM 2.0 mm x 12 mm Emerge Monorail balloon across target lesion- successful. reused? No [email or web address] 09:53 AM HR=76 bpm, KXHI=532/80 mmhg, SpO2=97.0 %, Resp=16 B/min, Comment=NSR 09:53 AM Recorded Pressure: Ao, HR=73, Condition=Condition 1 (Aorta) Ao 119/67/90 09:55 AM Balloon inflated @ 10 allyson for 20 seconds [email or web address] 09:55 AM Balloon catheter removed intact. [email or web address] 09:57 AM Guide wire removed intact. [email or web address] 09:57 AM Guide catheter removed intact. [email or web address] 09:57 AM 5Fr FR 4 catheter inserted over the wire DNC [email or web address] 09:58 AM HR=86 bpm, BWIL=623/87 mmhg, SpO2=95.0 %, Resp=15 B/min, Comment=NSR 09:58 AM At 09:58 the ACT was 400 seconds. [email or web address] 09:59 AM Recorded Pressure: LV, HR=75, Condition=Condition 1 (Left Ventricle) LV 122/4/12 09:59 AM Recorded Pressure: LV, HR=64, Condition=Condition 1 (Left Ventricle) LV 127/4/18 10:00 AM Recorded Pressure: LV, Ao, HR=77, Condition=Condition 1 (Left Ventricle) LV 94/6/16, (Aorta) Ao 109/28/75 10:00 AM Catheter crossed the aortic valve and was selectively placed in the left ventricle. Pressures recorded on pullback for left heart catheterization. [email or web address] 10:01 AM Bolus angiogram of left Ventricle complete: 8 ml/sec for a total of 24 mls [email or web address] 10:01 AM Catheterpulled back. [email or web address] 10:01 AM Catheter removed [email or web address] 10:01 AM 5Fr AR 1 catheter inserted over the wire [id number] [email or web address] 10:02 AM Time: 09:47 Patient comfortable and pain free: Yes [email or web address] 10:02 AM Time: 09:47LOC: 4 = Oriented but drowsy [email or web address] 10:03 AM RCA angiography performed in multiple views. [email or web address] 10:03 AM HR=75 bpm, REQB=301/77 mmhg, SpO2=97.0 %, Resp=17 B/min, Comment=NSR 10:04 AM Recorded Pressure: Ao, HR=78, Condition=Condition 1 (Aorta) Ao 111/82/97 10:04 AM Coronary Dominance: right [email or web address] 10:04 AM Lesion found in Mid RCA. Pre Stenosis: 15 Pre GAGE Flow: 3: Complete and Brisk Flow/Perfusion [email or web address] 10:05 AM Lesion found in Right PDA. Pre Stenosis: 20 Pre GAGE Flow: 3: Complete and Brisk Flow/Perfusion [email or web address] 10:07 AM Catheter removed [email or web address] 10:07 AM Procedure completed at 10:07 01/03/2019 [email or web address] 10:07 AM Did you address GAGE flow and Dominance? YesCoronary Dominance: right [email or web address] 10:08 AM Isovue 370 - 200ml,1 Bottle(s) used. [email or web address] 10:08 AM Arterial sheath pulled, Vasc Band closure device used and was Successful S/N. [email or web address] 10:08 AM HR=79 bpm, TRUA=149/89 mmhg, Resp=19 B/min, Comment=NSR 10:08 AM Sign out completed: Radiation Dose 516.75 mGy, 13.2 Gy/cm2 Fluoro Time: 9.6 Isovue 370 - 200ml contrast 188 ml given by Mohan Courtney MD, [facility]. Complications: None. 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 Sedation minutes 38. Cardiac Rehab Consult needed: Yes. Confirmed administered medications: Yes [email or web address] 10:08 AM 13 ml air in Vasc Band. [email or web address] 10:08 AM Estimated Blood Loss: minimal [email or web address] 10:08 AM Post ECG NSR [email or web address] 10:08 AM Post Blood Pressure 116/89 [email or web address] 10:08 AM 10:08 Post Pulses Bilateral DP & PT 2+ [email or web address] 10:09 AM Information taught Cardiac Cath, PCI, and Vasc Band [email or web address] 10:09 AM Education needs Procedure, Plan of Care, and Disease Process [email or web address] 10:09 AM Learning barriers :None [email or web address] 10:09 AM Education Methods Verbal [email or web address] 10:09 AM Education evaluation Able to repeat information [email or web address] 10:09 AM Site status No bleeding/hematoma - Rt Wrist as reported by Minda Tabares RT (R) at 10:09 [email or web address] 10:09 AM Report given to Yumiko DUKE Pt taken to ICU Room #3. 10:09 [email or web address] 10:09 AM Delay to floor No [email or web address] 10:09 AM Family placed in consult room. [email or web address] 10:09 AM Complications: None [email or web address] 10:18 AM Patient out of room: 10:18 [email or web address] Complications Complication None None None Hemodynamics Pressures Site Systolic/A Wave Diastolic/V Wave Mean AO 120 82 99 AO 119 67 90 LV 122 4 12 LV 127 4 18 LV 94 6 16 AO 109 28 75 AO 111 82 97 Post Procedure Information Blood Pressure: 116/89 mmHg Rhythm: NSR Post procedural instructions were not given Closure Device Time Device Success/Fail 01/03/2019 10:08:00 AM Mechanical Compression Successful Site Checks Time Location Status Staff Sheath In? Note 10:09 AM Rt Wrist No bleeding/hematoma Minda Tabares RT (R) Pulses Time Site Pre-Procedure Post-Procedure Note 9:27:00 AM Bilateral DP & PT 2+ 2+ 01/03/2019 10:15:00 AM Bilateral radial 2+ 1+ Updated by Marti Coronel RT(R) on 01/03/2019 10:22:03 AM electronically signed on 01/03/2019 10:22:44 AM with status of Final
--- NOTE | 2019-01-03 10:28 | Cardiology History & Physical ---
Date of Encounter: 01/03/19 Time of Encounter: 10:20 Assessment and Plan (1) ST elevation myocardial infarction (STEMI) Current Visit: Yes Status: Acute A/R/B of emergent C dw patient including 1% chance of recurrent ME//CVA/CABG/LI/bleeding. Pt aware and agreeable with proceeding. EF assessment to be completed, DAPT, cardiac rehab. The assessment and plan as outlined above was discussed with the patient and/or family members who expressed understanding and agreement. All questions were answered. Qualifiers: Involved coronary artery: left circumflex coronary artery Qualified Code(s): I21.21 - ST elevation (STEMI) myocardial infarction involving left circumflex coronary artery (2) Diabetes Current Visit: Yes Status: Acute SSI QID FS The assessment and plan as outlined above was discussed with the patient and/or family members who expressed understanding and agreement. All questions were answered. Qualifiers: Diabetes mellitus type: type 2 Diabetes mellitus shelter insulin use: unspecified shelter insulin use status Diabetes mellitus complication status: with circulatory complication Diabetes mellitus complication detail: with other circulatory complications Qualified Code(s): E11.59 - Type 2 diabetes mellitus with other circulatory complications History of Present Illness Chief complaint: nausea / vomiting HPI: Ms. Plata is a 58 year old female with no previous cardiac history presenting with nausea vomiting and epigastric discomfort. Initial EKG nondiagnostic for ME, workup for GI cause initated. Continued nausea and vomiting with repeat EKG later this morning diagnostic for acute ME and STEMI activated. Past Med Surg Social Fam HX - Past Medical History Medical history: diabetes, hypertension Psychiatric history: no psych history - Past Surgical History Additional surgical history: Foot surgery - Social History Smoking Status: Former smoker Smokeless Tobacco Status: No Alcohol use: rarely Drug use: none - Additional Family History Additional family history: htn Medications and Allergies No Known Home Drugs 01/03/19 [History] Allergy/AdvReac Type Severity Reaction Status Date / Time codeine Allergy See Verified 01/03/19 06:43 Comments levofloxacin [From Levaquin] AdvReac Muscle Pain Verified 01/03/19 06:42 All Systems Review: The remainder of the systems were reviewed and are negative - Constitutional Constitutional: no chills, no fever(s) - EENT Eyes: no blurred vision, no loss of vision Nose, mouth and throat: no bleeding gums, no epistaxis - Cardiovascular Cardiovascular: no chest pain at rest, no chest pain with exertion - Respiratory Respiratory: no hemoptysis, no wheezing - Gastrointestinal Gastrointestinal: nausea - Genitourinary Genitourinary: no hematuria, no nocturia - Musculoskeletal Musculoskeletal: no muscle cramps, no muscle weakness - Integumentary Integumentary: no rash, no unusual bruising - Neurological Neurological: no syncope, no tingling - Psychiatric Psychiatric: no hallucinations, no panic attacks Physical Examination Vital Signs, Last 4 Hours Temp Pulse Resp BP Pulse Ox 01/03/19 09:13 87 16 141/92 98 01/03/19 09:01 75 18 155/92 99 01/03/19 08:46 86 18 160/91 98 01/03/19 08:30 91 20 175/115 98 01/03/19 06:59 165/11 01/03/19 06:51 97 25 97 01/03/19 06:50 193/113 01/03/19 06:33 97.9 F 90 23 196/124 96 General: Conversant, Other (distressed) HEENT: Atraumatic Neck: No JVD Cardiac: Reg Rate and Rhythm Lungs: Normal Breath Sounds Neuro: Alert and responsive Abdomen: Soft Skin: No rashes noted on visualized skin Musculoskeletal: No Chest Wall Tenderness Extremities: No Edema Results 01/03/19 08:50 01/03/19 07:01 Lab Results 01/03/19 01/03/19 01/03/19 07:01 07:01 07:01 WBC 12.8 H Hgb 15.0 Hct 45.4 H Plt Count 171 INR 1.0 APTT 34.9 Sodium 137 Potassium 4.2 Chloride 103 Carbon Dioxide 22 L BUN 19 Creatinine 0.66 Glucose 169 H Calcium 9.3 Total Bilirubin 0.5 AST 19 ALT 20 Alkaline Phosphatase 69 Troponin I 0.37 H* B-Natriuretic Peptide Lipase 39 01/03/19 01/03/19 01/03/19 07:01 08:50 08:50 WBC 12.7 H Hgb 15.3 Hct 46.2 H Plt Count 312 D INR APTT Sodium Potassium Chloride Carbon Dioxide BUN Creatinine Glucose Calcium Total Bilirubin AST ALT Alkaline Phosphatase Troponin I 0.56 H* B-Natriuretic Peptide 47 Lipase 01/03/19 08:50 WBC Hgb Hct Plt Count INR 1.0 APTT Sodium Potassium Chloride Carbon Dioxide BUN Creatinine Glucose Calcium Total Bilirubin AST ALT Alkaline Phosphatase Troponin I B-Natriuretic Peptide Lipase
[2019-01-03] MEDS ORDERED: Tirofiban 12.5 MG/250ML 12.5 MG/250 ML BAG IVC SCH (10:30)
[2019-01-03] MEDS: Insulin LISPRO 300 UNITS/3 ML VIAL SQ SCH ×2 (11:12→17:15)
--- NOTE | 2019-01-03 13:36 | Electrocardiograph Report ---
[address] [address] Test Date: 2019-01-03 Pat Name: Jenelle Plata Department: EXAM5 Room: 03 Gender: F Director Of Marketing Operations: : 1960 Requested By: Haroon Suresh Order Number: [id number] Reading MD: Clay Booth Measurements Intervals [place] Rate: 82 P: 35 CT: 122 QRS: 19 QRSD: 82 T: 16 QT: 372 QTc: 435 Interpretive Statements Sinus rhythm Atrial premature complex Borderline ST elevation, lateral leads Electronically Signed On 01-03-2019 13:35:08 EDT by Clay Booth
--- NOTE | 2019-01-03 13:40 | Electrocardiograph Report ---
[address] [address] Test Date: 2019-01-03 Pat Name: Jenelle Plata Department: EXAM5 Room: 03 Gender: F Engine Testing Supervisor: : 1960 Requested By: Haroon Suresh Order Number: [id number] Reading MD: Clay Booth Measurements Intervals [place] Rate: 87 P: 50 ND: 130 QRS: 17 QRSD: 86 T: 2 QT: 373 QTc: 449 Interpretive Statements Sinus rhythm ST elevation, lateral leads. ST depression, inferior leads Electronically Signed On 01-03-2019 13:38:57 EDT by Clay Booth
[2019-01-03] MEDS ORDERED: Acetaminophen/Aspirin/Caffeine TABLET PO PRN (13:43)
--- NOTE | 2019-01-03 13:43 | Electrocardiograph Report ---
[place] [address] Test Date: 2019-01-03 Pat Name: Jenelle Plata Department: 109 Room: [facility] Gender: F Tooth Cutter Contact Wheel: BLANCA : 1960 Requested By: Mohan Courtney Order Number: [id number] Reading MD: Clay Booth Measurements Intervals [place] Rate: 72 P: 54 FL: 143 QRS: 33 QRSD: 88 T: 65 QT: 407 QTc: 431 Interpretive Statements SINUS RHYTHM Electronically Signed On 01-03-2019 13:41:51 EDT by Clay Booth
[2019-01-03] MEDS: 0.9 % Sodium Chloride 1,000 ML IVC SCH (14:46)
[2019-01-03] MEDS: *HR* Ticagrelor 90 MG TABLET PO SCH (20:28)
[2019-01-03] MEDS ORDERED: Insulin LISPRO 300 UNITS/3 ML VIAL SQ SCH (21:00)
[2019-01-04] MEDS: 0.9 % Sodium Chloride 1,000 ML IVC SCH (04:03)
[2019-01-04 04:48] LABS: Basophils # 0.1 K/mcL (0.0-0.2); Basophils % 0.5 %; Eosinophils # 0.1 K/mcL (0.0-0.6); Eosinophils % 1.2 %; Hematocrit 45.7 % (35.3-44.9); Hemoglobin 14.5 g/dL (11.5-15.4); Hemoglobin 14.8 g/dL (11.5-15.4); Immature Granulocytes % 0.3 % (0-4); Lymphocytes # 2.4 K/mcL (0.6-4.6); Lymphocytes % 22.5 %; Mean Corpuscular HGB Conc 32.2 g/dL (31.6-35.5); Mean Corpuscular Hemoglobin 29.1 pg (28.0-33.3); Mean Corpuscular Volume 90.4 fL (83.0-100.0); Monocytes # 0.8 K/mcL (0.0-1.3); Monocytes % 7.4 %; Neutrophils # 7.2 K/mcL (1.6-8.9); Platelet Count 275 K/mcL (140-400); Red Blood Count 5.09 M/mcL (3.82-4.97); Red Cell Distribution Width 14.1 % (11.5-14.5); Segmented Neutrophils % 68.1 %; White Blood Count 10.6 K/mcL (4.3-11.1)
[2019-01-04 05:01] LABS: BUN/Creatinine Ratio 18 (6-26); Blood Urea Nitrogen 12 mg/dL (6-20); Calcium 8.7 mg/dL (8.6-10.3); Carbon Dioxide 25 mEq/L (23-29); Chloride 105 mEq/L (98-107); Glucose 133 mg/dL (70-105); Osmolality,Calculated 288 (280-300); Potassium 3.8 mEq/L (3.5-5.1); Sodium 138 mEq/L (136-145); eGFR For African Americans > 60 (> 60); eGFR For Non-African Americans > 60 (> 60)
[2019-01-04 05:02] LABS: BUN/Creatinine Ratio 17 (6-26); Blood Urea Nitrogen 12 mg/dL (6-20); eGFR For African Americans > 60 (> 60); eGFR For Non-African Americans > 60 (> 60)
[2019-01-04] MEDS ORDERED: *HR* Enoxaparin 40 MG/0.4 ML SYRINGE SQ SCH (06:00)
[2019-01-04] MEDS: Insulin LISPRO 300 UNITS/3 ML VIAL SQ SCH ×3 (08:08→17:29)
[2019-01-04] MEDS: *HR* Ticagrelor 90 MG TABLET PO SCH ×2 (08:09→22:27)
--- NOTE | 2019-01-04 08:30 | Cardiology Progress Note ---
Date of Encounter: 01/04/19 Time of Encounter: 08:30 Assessment and Plan (1) ST elevation myocardial infarction (STEMI) Current Visit: Yes Status: Acute Per Cardiology: Status post STEMI with stenting. Peak trop 0.56. Echo shows preserved EF 55%. On statin, beta ed, VINNIE inhibitor, Brilinta-- assistance card provided. Will add asa. Plan for possible discharge tomorrow. Will need outpatient staged PCI. All questions answered. Qualifiers: Involved coronary artery: left circumflex coronary artery Qualified Code(s): I21.21 - ST elevation (STEMI) myocardial infarction involving left circ umflex coronary artery Discussion w patient/family: The assessment and plan as outlined above was discussed with the patient and/or family members who expressed understanding and agreement. All questions were answered. Thank you for involving us in the care of your patient. Please call with any questions. Subjective Principal diagnosis: STEMI Interval history: Denies any concerns or complaints overnight. Denies any chest pain, short of breath, palpitations. Denies any concerns from her right wrist site. Objective Vital Signs, Last 4 Hours Temp Pulse Resp BP Pulse Ox 01/04/19 08:00 98.5 F 88 17 140/92 95 01/04/19 07:00 80 18 144/79 94 01/04/19 06:00 86 16 134/95 93 01/04/19 05:00 85 14 117/76 94 General: Conversant, No Apparent Distress HEENT: Atraumatic, Normocephaly, Mucus Membranes Moist Neck: No JVD, Normal carotid pulses Cardiac: Reg Rate and Rhythm, Normal S1 and S2, No Murmur Lungs: Normal Breath Sounds, No Wheeze, Rales, Rhonchi Neuro: Alert and responsive, No focal deficits noted Abdomen: Soft, Non-Tender Skin: No rashes noted on visualized skin, Other (Right wrist site dry and intact, no hematoma, no bleeding, no ecchymosis, right radial pulse 2+ palpable) Musculoskeletal: No Chest Wall Tenderness Extremities: No Clubbing, No Cyanosis, No Edema, Normal Pulses Results 01/04/19 04:12 01/04/19 04:12 Lab Results Laboratory Tests 01/03/19 01/03/19 01/03/19 07:01 07:01 07:01 Hgb Hct INR 1.0 Creatinine Est GFR (Non-Af Amer) Troponin I 0.37 H* B-Natriuretic Peptide 47 01/03/19 01/04/19 01/04/19 08:50 04:12 04:12 Hgb 14.5 Hct 45.7 H INR Creatinine 0.70 Est GFR (Non-Af Amer) > 60 Troponin I 0.56 H* B-Natriuretic Peptide ITS Impressions Chest X-Ray 01/03/19 06:33 IMPRESSION: No acute cardiopulmonary disease or significant interval change from prior study 04/29/2013 D/ / Vu Ibarra / Vu Ibarra Interpreting Provider: Vu Ibarra Gallbladder Ultrasound 01/03/19 07:15 IMPRESSION: Moderate fatty infiltration of the liver. No acute abnormality. No evident gallbladder disease. RECOMMENDATIONS: If a strong clinical suspicion of gallbladder disease exists, a hepatobiliary scan with gallbladder stimulation would be recommended. D/ / Lam Fraser MD / Lam Fraser MD Interpreting Provider: Lam Fraser MD Chest CTA 01/03/19 07:42 IMPRESSION: No evidence of pulmonary embolism or acute pulmonary abnormality. Slight bibasilar atelectasis. Old granulomatous disease. D/ / Lam Fraser MD / Lam Fraser MD Interpreting Provider: Lam Fraser MD Echocardiogram 01/03/19 10:18 Impressions: LVEF 55%. Mild segmental left ventricular systolic dysfunction. Normal right ventricular structure and function. No significant valvular dysfunction. No evidence of pulmonary hypertension. Left Ventricular Wall Motion: Rest Echo Findings The apical lateral, mid anterior lateral, basal anterior lateral, mid inferior lateral and basal inferior lateral davis were hypokinetic. All other wall segments showed normal motion. Findings: Study Quality * Technically sub-optimal due to poor echocardiographic windows. ECG Findings * Sinus rhythm with PVCs. Left Ventricle * LVEF 55%. * Normal LV chamber size, wall thickness . * Mild segmental left ventricular systolic dysfunction. * Normal left ventricular diastolic function. Right Ventricle * Normal right ventricular structure and function. Left Atrium * Normal left atrial size. Right Atrium * Normal right atrial size. Interatrial Septum * Interatrial septum not well evaluated. * No evidence of PFO by color Doppler. Aortic Valve * Trileaflet aortic valve with normal function. * No aortic stenosis. * No aortic regurgitation. Mitral Valve * Normal mitral valve structure. * No mitral stenosis. * Trace mitral regurgitation. Tricuspid Valve * Normal tricuspid valve structure. * No tricuspid stenosis. * No tricuspid regurgitation. * Unable to estimate RVSP due to lack of TR jet. * Estimated RA pressure is 8 mmHg. * No evidence of pulmonary hypertension. Pulmonic Valve * Pulmonic valve is not well visualized. * No pulmonic stenosis. * No pulmonic regurgitation. Aorta * Normally sized aortic root. Pericardium * The pericardium appears normal. IVC * The IVC is dilated. * > 50% respiratory change Active Medications Acetaminophen (Tylenol) 650 mg PO Q6HR PRN PRN Reason: Mild Pain Stop: 07/05/19 10:16 Hydrocodone Bitart/Acetaminophen ([place] 5-325 Mg) 1 tab PO Q4HR PRN PRN Reason: Moderate Pain Stop: 07/05/19 10:16 Last Admin: 01/03/19 14:47 Dose: 1 tab Documented by: Atorvastatin Calcium (Lipitor) 80 mg PO HS ASHLEY Stop: 07/05/19 21:01 Last Admin: 01/03/19 20:28 Dose: 80 mg Documented by: Dextrose/Water (Dextrose 50% (Syg)) 25 ml IVP AD PRN PRN Reason: Hypoglycemia Stop: 07/05/19 10:21 Diphenhydramine HCl (Benadryl) 25 mg PO HS PRN PRN Reason: Insomnia Stop: 07/05/19 10:16 Enoxaparin Sodium (Lovenox) 40 mg SQ 0600 ASHLEY; Protocol Stop: 07/06/19 06:01 Last Admin: 01/04/19 06:12 Dose: 40 mg Documented by: Glucagon (Glucagen) 1 mg IM ONCE PRN PRN Reason: Hypoglycemia Stop: 07/05/19 10:21 Glucose (Gluctose) 15 gm PO ONCE PRN PRN Reason: Hypoglycemia Stop: 07/05/19 10:21 Glucose (Gluctose) 30 gm PO ONCE PRN PRN Reason: Hypoglycemia Stop: 07/05/19 10:21 Hydralazine HCl (Hydralazine) 20 mg IVP Q6HR PRN PRN Reason: Hypertension Stop: 07/05/19 13:54 Last Admin: 01/03/19 15:55 Dose: 20 mg Documented by: Dextrose (Dextrose 5%) 1,000 mls @ 100 mls/hr IVC .Q10H PRN PRN Reason: HYPOGLYCEMIA Stop: 07/05/19 10:21 Sodium Chloride (0.9 % Sodium Chloride) 1,000 mls @ 75 mls/hr IVC .[id number] ASHLEY Stop: 07/05/19 14:01 Last Admin: 01/04/19 04:03 Dose: Not Given Documented by: Insulin Human Lispro (Humalog) 0 units SQ HS [facility]; Protocol Stop: 07/05/19 21:01 Last Admin: 01/03/19 20:31 Dose: Not Given Documented by: Insulin Human Lispro (Humalog) 0 units SQ TIDAC [facility]; Protocol Stop: 07/05/19 11:31 Last Admin: 01/04/19 08:08 Dose: Not Given Documented by: Lisinopril (Zestril) 2.5 mg PO DAILY [facility]; Protocol Stop: 07/06/19 09:01 Last Admin: 01/04/19 08:09 Dose: 2.5 mg Documented by: Metoprolol Tartrate (Lopressor) 25 mg PO BID [facility] Stop: 07/05/19 21:01 Last Admin: 01/04/19 08:09 Dose: 25 mg Documented by: Nitroglycerin (Nitroglycerin) 0.4 mg SL Q5M PRN PRN Reason: CHEST PAIN Last Admin: 01/03/19 09:08 Dose: 0.4 mg Documented by: Ticagrelor (Brilinta) 90 mg PO BID [facility] Stop: 07/05/19 21:01 Last Admin: 01/04/19 08:09 Dose: 90 mg Documented by: - Imaging and Cardiology Echo: report reviewed Cardiac cath: report reviewed Consult Discharge Plan - Plan Referrals: Coleen Fitzgerald MD [Primary Care Provider] -
[2019-01-04] MEDS ORDERED: Isosorbide MONOnitrate (24 HR) 30 MG TAB.ER.24H PO SCH (09:00)
[2019-01-04] MEDS ORDERED: Aspirin Enteric Coated 81 MG Tablet PO SCH (09:00)
[2019-01-04] MEDS ORDERED: *HR* Dextrose 50 % in Water (Syg) 50 ML SYRINGE IVP PRN (15:12)
[2019-01-04] MEDS ORDERED: *HR* HYDROcodone/Acet 5/325 mg TABLET PO PRN (15:12)
[2019-01-04] MEDS ORDERED: Acetaminophen 325 MG TABLET PO PRN (15:12)
[2019-01-04] MEDS ORDERED: Nitroglycerin 0.4 MG TAB.SUBL SL PRN (15:12)
[2019-01-04] MEDS ORDERED: Dextrose Gel 15 GM/37.5 ML TUBE PO PRN ×2 (15:12)
[2019-01-04] MEDS ORDERED: D5% in Water 1,000 ML IVC PRN (15:12)
[2019-01-04] MEDS ORDERED: Insulin LISPRO 300 UNITS/3 ML VIAL SQ SCH (21:00)
[2019-01-05] MEDS ORDERED: *HR* Enoxaparin 40 MG/0.4 ML SYRINGE SQ SCH (06:00)
[2019-01-05] MEDS: Insulin LISPRO 300 UNITS/3 ML VIAL SQ SCH (07:37)
[2019-01-05] MEDS: *HR* Ticagrelor 90 MG TABLET PO SCH (07:40)
[2019-01-05] MEDS ORDERED: Aspirin Enteric Coated 81 MG Tablet PO SCH (09:00)
--- NOTE | 2019-01-05 10:49 | Discharge Summary ---
Orders not resulted at time of discharge: Pending orders 01/03/19 10:18 ECG 12 lead ECG [ECG] Stat 01/04/19 06:00 ECG 12 lead ECG [ECG] AM 0600 01/04/19 07:00 ECG 12 lead ECG [ECG] Routine Date of Encounter: 01/05/19 Time of Encounter: 10:40 - Discharge Diagnosis (1) ST elevation myocardial infarction (STEMI) Priority: Primary Status: Acute Qualifiers: Involved coronary artery: left circumflex coronary artery Qualified Code(s): I21.21 - ST elevation (STEMI) myocardial infarction involving left circumflex coronary artery - Hospital Course Hospital course: Ms. Plata is a 58 year old female s/p post STEMI with stenting. Peak trop 0.56. Echo shows preserved EF 55%. Prepping for discharge home in stable condition. Evaluate for staged PCI of LAD in outpatient setting. On aspirin, statin, beta ed, ARB, Brilinta, SL NTG. Postprocedure education provided. Dual antiplatelet therapy reinforced. All questions answered. - Time Spent with Patient Total time spent providing and/or coordinating discharge services: Less than 30 minutes - Discharge Medications Prescriptions: New Ticagrelor [Brilinta] 90 mg PO BID #60 tablet Atorvastatin [Lipitor] 80 mg PO HS #30 tablet Metoprolol [Lopressor] 25 mg PO BID #60 tablet Nitroglycerin 0.4 mg SL Q5M PRN #30 tab.subl PRN Reason: CHEST PAIN Aspirin Enteric Coated [Aspirin EC] 81 mg PO DAILY tablet. Continued Valsartan 160 mg PO DAILY Metformin HCl [Glucophage Xr] 500 mg PO QPM Discontinued hydroCHLOROthiazide [Hydrochlorothiazide] 12.5 mg PO QAM PRN PRN Reason: Fluid Retention Atorvastatin [Lipitor] 10 mg PO DAILY Home Medications: Metformin HCl [Glucophage Xr] 500 mg PO QPM 01/04/19 [History] Valsartan 160 mg PO DAILY 01/04/19 [History] Aspirin Enteric Coated [Aspirin EC] 81 mg PO DAILY tablet. 01/05/19 [Rx] Atorvastatin [Lipitor] 80 mg PO HS #30 tablet 01/05/19 [Rx] Metoprolol [Lopressor] 25 mg PO BID #60 tablet 01/05/19 [Rx] Nitroglycerin 0.4 mg SL Q5M PRN #30 tab.subl 01/05/19 [Rx] Ticagrelor [Brilinta] 90 mg PO BID #60 tablet 01/05/19 [Rx] Allergies/Adverse Reactions: Allergy/AdvReac Type Severity Reaction Status Date / Time codeine Allergy See Verified 01/04/19 15:38 Comments levofloxacin [From Levaquin] AdvReac Muscle/JOINT Verified 01/04/19 15:38 Pain Date of admission: 01/03/19 09:49 Primary care physician: Coleen Fitzgerald Consults: 01/03/19 08:30 Consult to Cardiology [CONS] Stat Comment: Consulting Provider: [facility] [place] Reason for Consult: chest pain, elevated troponin Time Notified: 08:30 Call Completed: Yes 01/03/19 10:16 Consult to Cardiac Rehabilitation-Phase1 [CONS] Routine Comment: Reason for Consult: post op PCI Call Completed: Yes 01/03/19 10:18 Consult to Cardiac Rehabilitation-Phase1 [CONS] Routine Comment: Reason for Consult: AMI Call Completed: Yes Consult to Nurse Navigator [CONS] Routine Comment: Discharging clinician: Bobby Ortega Anticipated date of discharge: 01/05/19 Physical Examination Vital Signs, Last 4 Hours Temp Pulse Resp BP Pulse Ox 01/05/19 07:04 98.9 F 87 14 123/84 97 General: Conversant, No Apparent Distress HEENT: Atraumatic, Normocephaly, Mucus Membranes Moist Neck: No JVD, Normal carotid pulses Cardiac: Reg Rate and Rhythm, Normal S1 and S2, No Murmur Lungs: Normal Breath Sounds, No Wheeze, Rales, Rhonchi Neuro: Alert and responsive, No focal deficits noted Abdomen: Soft, Non-Tender Skin: No rashes noted on visualized skin Musculoskeletal: No Chest Wall Tenderness Extremities: No Clubbing, No Cyanosis, No Edema, Normal Pulses - Patient Status Disposition: Home, Self-Care Condition: Fair Functional capacity at discharge: independent ambulation Overall status at discharge: patient is progressing back to baseline - Discharge Instructions Follow Up With: Coleen Fitzgerald MD [Primary Care Provider] - Additional Instructions: RISK FACTORS: STOP SMOKING: If you smoke, STOP. Smoking or tobacco use significantly increases your risk of heart disease because nicotine causes the arteries to narrow or constrict. It also causes fats to stick to the artery. Your chances of having a heart attack are greatly increased if you continue to smoke. For more information, call the education line for smoking cessation 1-488-ZVFFHLJ EAT A LOW FAT/CHOLESTEROL/SODIUM DIET: This diet may help reduce your chances of having a heart attack. LIFTING: With affected extremity: Avoid bending, pushing off and lifting more than 2 pounds for 24 hours The following 48 hours, avoid lifting anything more than 5 pounds Avoid strenuous activity or repetitive motions ACTIVITY: You may walk or climb stairs as tolerated You can resume sexual activity as tolerated In general, you are encouraged to engage in a minimum of 30 minutes or more of moderate intensity physical activity, such as brisk walking, daily or at least 3-4 times weekly BATHING Do not submerge the site into water (bath tub, hot tub, swimming pool, dishes) for 1 week. This can be a source for infection into the blood stream. You may shower after 24 hours SITE CARE: After 24 hours, you may remove the dressing and leave the site open to air. Keep the site clean and dry. Clean gently and pat dry. You can expect bruising and tenderness that gradually resolve within a week or two. Return to work as instructed per your physician Resume driving as instructed per physician Keep all scheduled follow up appointments Resume medications as instructed IMPORTANT: If prescribed a Platelet Aggregation Inhibitor such as, Plavix, Brilinta or Effient: Duration of therapy is minimum one year These medications are often used in combination with Aspirin in prevention of future heart attacks Never discontinue unless consult with your [facility] Associate STROKE (CVA) Risk factors for a stroke are: Age, cigarette smoking, diabetes, excessive alcohol consumption, family history, high blood pressure, overweight, physical inactivity, prior stroke, heart attack, diagnosis of carotid artery stenosis or other artery disease. Warning signs: Sudden numbness or weakness of the face, arm or leg; especially on one side of the body, sudden confusion, trouble speaking or understanding, sudden trouble seeing in one or both eyes, sudden trouble walking, dizziness, loss of balance or coordination, sudden severe headache with no cause. Call 911 or go to the Emergency Room. CONGESTIVE HEART FAILURE: If you have been diagnosed with Congestive Heart Failure (CHF) and your symptoms return, make an appointment with your physician Weigh yourself daily. Notify your physician if you have a weight gain of two or more pounds in one day or five or more pounds in one week. If you experience any difficulty breathing, please call 911 BLEEDING: Although the risk of bleeding is minimal, it can happen. If you have any bleeding from the site, apply firm pressure above the puncture site for 10-15 minutes. If the bleeding does not stop, continue manual pressure and call 911 Contact [facility] ( ) if: You develop a fever greater than 101 degrees Fahrenheit Your site becomes reddened or has any drainage You have an increase in pain or burning at the site or if a large knot forms at the site. If you experience chest pain, shortness of breath, dizziness, or extreme tired ness, stop the activity and rest. Please notify [facility] office if you experience any of these symptoms and they are not relieved by rest please call 911! - Diet and Activity Diet: diabetic diet, low fat, low cholesterol
[2019-01-05 12:03] VITALS: BP 119/76
== END 2019-01-05 12:38 | disposition home or self-care (01) | DRG 247 ==
LOC: EMEROOARM 06:28 → ICNU 09:23 → 2NENU 01-04 18:14
PROVIDERS: ADMIT Emergency Medicine; ATTEND Emergency Medicine